=== PATIENT | female | born 2000 | race Two or more races ===

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

== ENCOUNTER → 2021-02-08 09:26 | Outpatient (CLI) | payer OTHER | END | disposition home or self-care (01) | LOC: LAB 09:26 | PROVIDERS: ATTEND Obstetrics & Gynecology | DX: N91.1 Secondary amenorrhea (principal) ==

== ENCOUNTER 2021-02-15 09:20 | Outpatient (CLI) | payer OTHER | END 2021-02-15 09:25 | disposition home or self-care (01) | LOC: LAB 09:20 | PROVIDERS: ATTEND Obstetrics & Gynecology | DX: O09.71 Supervision of high risk pregnancy due to social problems, first trimester (principal) ==

== ENCOUNTER → 2021-03-01 08:57 | Outpatient (CLI) | payer OTHER | END | disposition home or self-care (01) | LOC: LAB 08:57 | PROVIDERS: ATTEND Obstetrics & Gynecology | DX: D50.8 Other iron deficiency anemias (principal) ==

== ENCOUNTER → 2021-03-08 07:45 | Outpatient (CLI) | payer OTHER | END | disposition home or self-care (01) | LOC: LAB 07:45 | PROVIDERS: ATTEND Obstetrics & Gynecology | DX: Z34.81 Encounter for supervision of other normal pregnancy, first trimester (principal) ==

== ENCOUNTER 2021-04-26 09:16 | Outpatient (CLI) | payer OTHER | END 2021-04-26 09:18 | disposition home or self-care (01) | LOC: LAB 09:16 | PROVIDERS: ATTEND Obstetrics & Gynecology | DX: E03.8 Other specified hypothyroidism (principal); O09.72 Supervision of high risk pregnancy due to social problems, second trimester ==

== ENCOUNTER → 2021-06-27 09:47 | Outpatient (CLI) | payer OTHER | END | disposition home or self-care (01) | LOC: LAB 09:47 | PROVIDERS: ATTEND Obstetrics & Gynecology | DX: O09.72 Supervision of high risk pregnancy due to social problems, second trimester (principal) ==

== ENCOUNTER 2021-09-08 15:51 | Outpatient (CLI) | payer OTHER ==
[2021-09-08] MEDS ORDERED: PRENATAL TABLE1 EAC1 PO (16:13)
== END 2021-09-08 18:30 | disposition home or self-care (01) ==
LOC: OBS/DEL 15:51
PROVIDERS: ATTEND Obstetrics & Gynecology
DX: O26.893 Other specified pregnancy related conditions, third trimester (principal); J98.8 Other specified respiratory disorders; Z3A.34 34 weeks gestation of pregnancy

== ENCOUNTER 2021-09-19 15:46 | Outpatient (CLI) | payer OTHER ==
[~2021-09-19 15:46] MED LIST changes: +PRENATAL TABLE1 EAC1 PO
== END 2021-09-19 15:55 | disposition home or self-care (01) ==
LOC: LAB 15:46
PROVIDERS: ATTEND Obstetrics & Gynecology Maternal & Fetal Medicine
DX: Z20.828 Contact with and (suspected) exposure to other viral communicable diseases (principal); Z34.83 Encounter for supervision of other normal pregnancy, third trimester

== ENCOUNTER 2021-10-01 08:41 | Outpatient (CLI) | payer OTHER | END 2021-10-01 09:28 | disposition home or self-care (01) | LOC: NST 08:41 | PROVIDERS: ATTEND Obstetrics & Gynecology | DX: Z34.83 Encounter for supervision of other normal pregnancy, third trimester (principal) ==

== ENCOUNTER 2021-10-09 12:30 | Inpatient (IN) | payer OTHER ==
[~2021-10-09] VITALS: Ht 157.5 cm; Wt 3.2 kg
[2021-10-10] MEDS ORDERED: IRON325 MG PO (06:59)
[2021-10-13] MEDS ORDERED: KETO10TA2 PO (11:17)
[2021-10-13] MEDS ORDERED: OXYC1TAB9 PO (11:18)
== END 2021-10-13 14:33 | disposition home or self-care (01) | DRG 788 ==
LOC: LDR 10-10 06:29 → OB/GYN 10-10 19:59
PROVIDERS: ADMIT Obstetrics & Gynecology; ATTEND Obstetrics & Gynecology
PROC: 4A1HXCZ Monitoring of Products of Conception, Cardiac Rate, External Approach (ICD-10-PCS; 2021-10-10)
PROC: 10D00Z1 Extraction of Products of Conception, Low, Open Approach (ICD-10-PCS; principal; 2021-10-10 17:15)
DX: O33.8 Maternal care for disproportion of other origin (principal); O62.2 Other uterine inertia; Z20.822 Contact with and (suspected) exposure to COVID-19; Z3A.39 39 weeks gestation of pregnancy; Z37.0 Single live birth

== ENCOUNTER 2021-12-23 11:24 | Outpatient (CLI) | payer OTHER ==
[~2021-12-23 11:24] MED LIST changes: +IRON325 MG PO; +KETO10TA2 PO; +OXYC1TAB9 PO
== END 2021-12-23 11:30 | disposition home or self-care (01) ==
LOC: LAB 11:24
PROVIDERS: ATTEND Obstetrics & Gynecology
DX: N91.1 Secondary amenorrhea (principal)

== ENCOUNTER 2022-10-07 14:58 | Outpatient (CLI) | payer OTHER | END 2022-10-07 15:01 | disposition home or self-care (01) | LOC: LAB 14:58 | PROVIDERS: ATTEND Obstetrics & Gynecology | DX: R22.1 Localized swelling, mass and lump, neck (principal); D50.8 Other iron deficiency anemias; E03.8 Other specified hypothyroidism; E55.9 Vitamin D deficiency, unspecified; N39.0 Urinary tract infection, site not specified ==

== ENCOUNTER 2022-12-14 11:54 | Outpatient (CLI) | payer OTHER | END 2022-12-14 12:09 | disposition home or self-care (01) | LOC: LAB 11:54 | PROVIDERS: ATTEND Obstetrics & Gynecology | DX: O09.71 Supervision of high risk pregnancy due to social problems, first trimester (principal) ==

== ENCOUNTER 2024-04-19 11:43 | Emergency (ER) | payer OTHER ==
[~2024-04-19] VITALS: Ht 157.5 cm; Wt 77.1 kg
[2024-04-19 13:16] LABS: HEMATOCRIT 37.3 % (36.0-45.00); HEMOGLOBIN 12.6 g/dL (12.0-15.00); MEAN CELL VOLUME 81.9 fL (80.00-100.00); MEAN CORPUSCULAR HEMOGLOBIN 27.7 pg (27.00-32.0); MEAN CORPUSCULAR HGB CONC 33.8 g/dl (32.0-36.0); PLATELET COUNT 221 K/uL (150-450); RED BLOOD COUNT 4.55 M/uL (4.00-6.00); RED CELL DISTRIBUTION WIDTH 13.8 % (11.5-14.5)
[2024-04-19 14:05] LABS: CALCIUM 9.5 mg/dL (8.5-10.1); CREATININE SERUM 0.62 mg/dL (0.55-1.02); GFR 119.28; POTASSIUM 4.31 mEq/L (3.5-5.1)
[2024-04-19] MEDS ORDERED: ACETAMINOPHEN 500 MG GEL..CAP PO ONE (14:45)
== END 2024-04-19 14:47 | disposition home or self-care (01) ==
LOC: ER 11:44
PROVIDERS: General Practice
DX: R42 Dizziness and giddiness (principal); R00.0 Tachycardia, unspecified

== ENCOUNTER 2024-10-30 10:02 | Outpatient (CLI) | payer OTHER | END 2024-10-30 10:03 | disposition home or self-care (01) | LOC: SONOGRAMA 10:02 | PROVIDERS: ATTEND Obstetrics & Gynecology | DX: N63.21 Unspecified lump in the left breast, upper outer quadrant (principal); N63.12 Unspecified lump in the right breast, upper inner quadrant ==